=== PATIENT | female | born 1930 | race Caucasian/White ===

== ENCOUNTER 2016-03-27 | Outpatient (CLI) | payer MEDICARE, OTHER | END 2016-03-27 18:38 | disposition critical access hospital (66) | CPT/HCPCS: A0425; A0429 ==

== ENCOUNTER 2016-03-27 19:13 | Inpatient (IN) | payer MEDICARE, OTHER ==
[2016-03-27] MEDS ORDERED: ONDANSETRON 4 MG/2 ML VIAL ONE ×2 (20:02→22:21)
[2016-03-27] MEDS ORDERED: HYDROmorphone 1 MG/ML SYRINGE ONE (20:02)
[2016-03-27] MEDS ORDERED: HYDROmorphone 1 MG/ML SYRINGE IVP STA (20:02)
[2016-03-27] MEDS ORDERED: ONDANSETRON 4 MG/2 ML VIAL IVP STA ×2 (20:02→22:19)
[2016-03-27] MEDS ORDERED: IBUPROFEN 400 MG TABLET PO PRN (21:55)
[2016-03-28] MEDS: SODIUM CHLORIDE FLUSH 0.9% 10 ML SYRINGE IVP SCH ×4 (00:17→21:11)
[2016-03-28] MEDS: SODIUM CHLORIDE 0.9% 1,000 ML IV SCH ×2 (00:17→11:35)
[2016-03-28] MEDS: HYDROmorphone 1 MG/ML SYRINGE IVP PRN ×2 (00:18→06:31)
[2016-03-28] MEDS: ENOXAPARIN 40 MG/0.4 ML SYRINGE SUBQ SCH (08:08)
[2016-03-28] MEDS: POLYETHYLENE GLYCOL 3350 17 GM PACKET PO SCH (08:09)
[2016-03-28] MEDS ORDERED: fentaNYL 250 MCG/5 ML VIAL IVP ONE (08:30)
[2016-03-28] MEDS ORDERED: PROPOFOL 200 MG/20 ML VIAL IVP ONE (08:30)
[2016-03-28] MEDS ORDERED: MIDAZOLAM 2 MG/2 ML VIAL IVP ONE (08:30)
[2016-03-28] MEDS ORDERED: EPINEPHrine 1 MG/ML AMP IVP ONE (08:30)
[2016-03-28] MEDS ORDERED: ONDANSETRON 4 MG/2 ML VIAL IVP ONE (08:30)
[2016-03-28] MEDS ORDERED: SUCCINYLCHOLINE 200 MG/10 ML VIAL IVP ONE (08:30)
[2016-03-28] MEDS ORDERED: ACETAMINOPHEN 1,000 MG/100 ML VIAL IV ONE (08:30)
[2016-03-28] MEDS ORDERED: ROCURONIUM 50 MG/5 ML VIAL IVP ONE (08:30)
[2016-03-28] MEDS ORDERED: ceFAZolin 1 GM VIAL IV ONE (08:30)
[2016-03-28] MEDS ORDERED: DEXAMETHASONE 4 MG/ML VIAL IVP ONE (08:30)
[2016-03-28] MEDS ORDERED: LIDOCAINE-MPF 2% 5 ML VIAL IM ONE (08:30)
[2016-03-28] MEDS ORDERED: METOCLOPRAMIDE 10 MG/2 ML VIAL IVP ONE (08:30)
[2016-03-28] MEDS ORDERED: LACTATED RINGERS 1,000 ML IV ONE ×2 (09:22)
[2016-03-28] MEDS ORDERED: BISACODYL 10 MG SUPP PR PRN (11:05)
[2016-03-28] MEDS: D5NS W/20 MEQ KCL 1,000 ML IV SCH ×2 (11:42→23:54)
[2016-03-28] MEDS: ACETAMINOPHEN 1,000 MG/100 ML 100 ML IV SCH ×3 (12:31→23:54)
[2016-03-28] MEDS: KETOROLAC 15 MG/ML VIAL IVP PRN (12:41)
[2016-03-28] MEDS: SODIUM CHLORIDE FLUSH 0.9% 10 ML SYRINGE IVP PRN (12:41)
[2016-03-28] MEDS: ceFAZolin 1 GM in SODIUM CHLORIDE 0.9% MINIBAG 100 ML IV SCH ×2 (14:18→21:11)
[2016-03-28] MEDS: LATANOPROST 0.005% OPHTH DROPS EACHEYE SCH (21:11)
[2016-03-28] MEDS: PROMETHAZINE 25 MG/1 ML VIAL IM PRN (21:24)
[2016-03-28] MEDS: traMADol 50 MG TABLET PO PRN (23:53)
[2016-03-29] MEDS: ceFAZolin 1 GM in SODIUM CHLORIDE 0.9% MINIBAG 100 ML IV SCH (03:00)
[2016-03-29] MEDS: SODIUM CHLORIDE FLUSH 0.9% 10 ML SYRINGE IVP SCH ×3 (05:21→20:42)
[2016-03-29] MEDS: ACETAMINOPHEN 1,000 MG/100 ML 100 ML IV SCH ×3 (06:29→20:29)
[2016-03-29] MEDS: BISACODYL 5 MG TABLET PO SCH (09:00)
[2016-03-29] MEDS: DOCUSATE SODIUM 250 MG CAPSULE PO SCH (09:00)
[2016-03-29] MEDS: POLYETHYLENE GLYCOL 3350 17 GM PACKET PO SCH (09:00)
[2016-03-29] MEDS ORDERED: SODIUM CHLORIDE 0.9% 100ML 100 ML IV ONE ×2 (10:17→13:55)
[2016-03-29] MEDS: ENOXAPARIN 40 MG/0.4 ML SYRINGE SUBQ SCH (10:54)
[2016-03-29] MEDS: D5NS W/20 MEQ KCL 1,000 ML IV SCH (14:10)
[2016-03-29] MEDS: HYDROcod/ACETAM 5/325 MG TABLET PO PRN (20:30)
[2016-03-29] MEDS: CALCIUM CITRATE 250 MG TABLET PO SCH (20:32)
[2016-03-29] MEDS: LATANOPROST 0.005% OPHTH DROPS EACHEYE SCH (20:41)
[2016-03-30] MEDS: ACETAMINOPHEN 1,000 MG/100 ML 100 ML IV SCH ×4 (00:53→20:11)
[2016-03-30] MEDS: D5NS W/20 MEQ KCL 1,000 ML IV SCH ×3 (01:52→12:13)
[2016-03-30] MEDS: SODIUM CHLORIDE FLUSH 0.9% 10 ML SYRINGE IVP SCH ×2 (07:01→12:21)
[2016-03-30] MEDS: KETOROLAC 15 MG/ML VIAL IVP PRN (08:31)
[2016-03-30] MEDS: HYDROcod/ACETAM 5/325 MG TABLET PO PRN ×2 (08:32→16:52)
[2016-03-30] MEDS: BISACODYL 5 MG TABLET PO SCH (08:33)
[2016-03-30] MEDS: traMADol 50 MG TABLET PO PRN (08:33)
[2016-03-30] MEDS: CALCIUM CITRATE 250 MG TABLET PO SCH ×2 (08:33→20:42)
[2016-03-30] MEDS: POLYETHYLENE GLYCOL 3350 17 GM PACKET PO SCH (08:34)
[2016-03-30] MEDS: ENOXAPARIN 40 MG/0.4 ML SYRINGE SUBQ SCH (08:35)
[2016-03-30] MEDS: DOCUSATE SODIUM 250 MG CAPSULE PO SCH (09:17)
[2016-03-30] MEDS: SUCRALFATE 1 GM/10 ML UDC PO SCH (16:52)
[2016-03-30] MEDS: ONDANSETRON 4 MG/2 ML VIAL IVP PRN (20:37)
[2016-03-30] MEDS: PANTOPRAZOLE 40 MG VIAL IV SCH (20:39)
[2016-03-31] MEDS: ACETAMINOPHEN 1,000 MG/100 ML 100 ML IV SCH ×4 (01:37→18:25)
[2016-03-31] MEDS: SUCRALFATE 1 GM/10 ML UDC PO SCH ×5 (02:19→21:38)
[2016-03-31] MEDS: LATANOPROST 0.005% OPHTH DROPS EACHEYE SCH ×2 (02:20→21:33)
[2016-03-31] MEDS: SODIUM CHLORIDE FLUSH 0.9% 10 ML SYRINGE IVP SCH ×5 (02:21→14:53)
[2016-03-31] MEDS: traMADol 50 MG TABLET PO PRN (02:35)
[2016-03-31] MEDS: ONDANSETRON 4 MG/2 ML VIAL IVP PRN (07:52)
[2016-03-31] MEDS: HYDROmorphone 1 MG/ML SYRINGE IVP PRN (07:58)
[2016-03-31] MEDS: BISACODYL 5 MG TABLET PO SCH (09:13)
[2016-03-31] MEDS: POLYETHYLENE GLYCOL 3350 17 GM PACKET PO SCH (09:14)
[2016-03-31] MEDS: CALCIUM CITRATE 250 MG TABLET PO SCH ×2 (09:14→21:30)
[2016-03-31] MEDS: DOCUSATE SODIUM 250 MG CAPSULE PO SCH (09:14)
[2016-03-31] MEDS: PANTOPRAZOLE 40 MG VIAL IV SCH ×2 (09:31→21:30)
[2016-03-31] MEDS: SODIUM CHLORIDE FLUSH 0.9% 10 ML SYRINGE IVP PRN ×2 (09:32→21:30)
[2016-03-31] MEDS: PROMETHAZINE 25 MG/1 ML VIAL IM PRN (11:03)
[2016-03-31] MEDS ORDERED: FUROSEMIDE 40 MG/4 ML VIAL IVP ONE (14:00)
[2016-03-31] MEDS ORDERED: IOPAMIDOL-300 100 ML VIAL IVP ONE (14:03)
[2016-03-31] MEDS: HEPARIN 25,000 UNITS/500 ML 500 ML IV SCH (14:45)
[2016-03-31] MEDS: HYDROcod/ACETAM 5/325 MG TABLET PO PRN (18:26)
[2016-04-01] MEDS: ACETAMINOPHEN 1,000 MG/100 ML 100 ML IV SCH ×4 (00:16→17:42)
[2016-04-01] MEDS: SUCRALFATE 1 GM/10 ML UDC PO SCH ×4 (06:44→21:41)
[2016-04-01] MEDS: DOCUSATE SODIUM 250 MG CAPSULE PO SCH (08:28)
[2016-04-01] MEDS: BISACODYL 5 MG TABLET PO SCH (08:28)
[2016-04-01] MEDS: PANTOPRAZOLE 40 MG VIAL IV SCH (08:30)
[2016-04-01] MEDS: CALCIUM CITRATE 250 MG TABLET PO SCH ×2 (08:30→21:41)
[2016-04-01] MEDS: SODIUM CHLORIDE FLUSH 0.9% 10 ML SYRINGE IVP PRN ×3 (08:30→15:20)
[2016-04-01] MEDS: POLYETHYLENE GLYCOL 3350 17 GM PACKET PO SCH (08:30)
[2016-04-01] MEDS: traMADol 50 MG TABLET PO PRN (15:07)
[2016-04-01] MEDS: HEPARIN 25,000 UNITS/500 ML 500 ML IV SCH (15:18)
[2016-04-01] MEDS: ONDANSETRON 4 MG/2 ML VIAL IVP PRN (15:19)
[2016-04-01] MEDS: SODIUM CHLORIDE FLUSH 0.9% 10 ML SYRINGE IVP SCH ×2 (15:32→21:42)
[2016-04-01] MEDS: HYDROcod/ACETAM 5/325 MG TABLET PO PRN (17:06)
[2016-04-01] MEDS: PROMETHAZINE 25 MG/1 ML VIAL IM PRN (17:06)
[2016-04-01] MEDS: LATANOPROST 0.005% OPHTH DROPS EACHEYE SCH (21:41)
[2016-04-02] MEDS: ACETAMINOPHEN 1,000 MG/100 ML 100 ML IV SCH ×4 (01:31→18:28)
[2016-04-02] MEDS: PANTOPRAZOLE 40 MG TABLET PO SCH (06:35)
[2016-04-02] MEDS: SUCRALFATE 1 GM/10 ML UDC PO SCH ×4 (06:35→21:03)
[2016-04-02] MEDS: SODIUM CHLORIDE FLUSH 0.9% 10 ML SYRINGE IVP SCH ×3 (06:35→20:12)
[2016-04-02] MEDS: HEPARIN 25,000 UNITS/500 ML 500 ML IV SCH (06:46)
[2016-04-02] MEDS: POLYETHYLENE GLYCOL 3350 17 GM PACKET PO SCH (08:41)
[2016-04-02] MEDS: BISACODYL 5 MG TABLET PO SCH (08:42)
[2016-04-02] MEDS: CALCIUM CITRATE 250 MG TABLET PO SCH ×2 (08:42→20:09)
[2016-04-02] MEDS: DOCUSATE SODIUM 250 MG CAPSULE PO SCH (08:43)
[2016-04-02] MEDS ORDERED: HEPARIN 25,000 UNITS/500 ML 500 ML IV SCH (09:00)
[2016-04-02] MEDS: APIXABAN 2.5 MG TABLET PO SCH (13:09)
[2016-04-02] MEDS: SODIUM CHLORIDE FLUSH 0.9% 10 ML SYRINGE IVP PRN (18:33)
[2016-04-02] MEDS: LATANOPROST 0.005% OPHTH DROPS EACHEYE SCH (20:12)
[2016-04-02] MEDS ORDERED: MAGNESIUM HYDROXIDE 2,400 MG/30 ML UDC PO ONE (21:00)
[2016-04-03] MEDS: ACETAMINOPHEN 1,000 MG/100 ML 100 ML IV SCH ×4 (00:56→18:04)
[2016-04-03] MEDS: APIXABAN 2.5 MG TABLET PO SCH ×2 (00:57→15:08)
[2016-04-03] MEDS: SUCRALFATE 1 GM/10 ML UDC PO SCH ×4 (06:43→21:18)
[2016-04-03] MEDS: PANTOPRAZOLE 40 MG TABLET PO SCH (06:43)
[2016-04-03] MEDS: SODIUM CHLORIDE FLUSH 0.9% 10 ML SYRINGE IVP SCH ×3 (06:43→20:10)
[2016-04-03] MEDS ORDERED: LACTULOSE 10 GM /15 ML UDC PO ONE (06:56)
[2016-04-03] MEDS: traMADol 50 MG TABLET PO PRN (09:59)
[2016-04-03] MEDS: POLYETHYLENE GLYCOL 3350 17 GM PACKET PO SCH (10:02)
[2016-04-03] MEDS: BISACODYL 5 MG TABLET PO SCH (10:02)
[2016-04-03] MEDS: DOCUSATE SODIUM 250 MG CAPSULE PO SCH (10:04)
[2016-04-03] MEDS: CALCIUM CITRATE 250 MG TABLET PO SCH ×2 (10:05→20:10)
[2016-04-03] MEDS: LATANOPROST 0.005% OPHTH DROPS EACHEYE SCH (20:10)
[2016-04-03] MEDS: HYDROcod/ACETAM 5/325 MG TABLET PO PRN (21:21)
[2016-04-04] MEDS: ACETAMINOPHEN 1,000 MG/100 ML 100 ML IV SCH ×3 (00:13→12:31)
[2016-04-04] MEDS: APIXABAN 2.5 MG TABLET PO SCH ×2 (00:34→12:39)
[2016-04-04] MEDS: PANTOPRAZOLE 40 MG TABLET PO SCH (07:01)
[2016-04-04] MEDS: SUCRALFATE 1 GM/10 ML UDC PO SCH ×2 (07:01→11:51)
[2016-04-04] MEDS: SODIUM CHLORIDE FLUSH 0.9% 10 ML SYRINGE IVP SCH (07:01)
[2016-04-04] MEDS: CALCIUM CITRATE 250 MG TABLET PO SCH (08:17)
[2016-04-04] MEDS: POLYETHYLENE GLYCOL 3350 17 GM PACKET PO SCH (08:17)
[2016-04-04] MEDS: DOCUSATE SODIUM 250 MG CAPSULE PO SCH (08:17)
[2016-04-04] MEDS: BISACODYL 5 MG TABLET PO SCH (08:18)
[2016-04-09] MEDS ORDERED: APIXABAN 2.5 MG TABLET PO SCH (13:00)
== END 2016-04-04 14:50 | DRG 480 ==
PROC: 0QS636Z Reposition Right Upper Femur with Intramedullary Internal Fixation Device, Percutaneous Approach (ICD-10-PCS; principal; 2016-03-28 08:00)
PROC: 30233N1 Transfusion of Nonautologous Red Blood Cells into Peripheral Vein, Percutaneous Approach (ICD-10-PCS; 2016-03-29)
DX: S72.21XA Displaced subtrochanteric fracture of right femur, initial encounter for closed fracture (principal); W01.0XXA Fall on same level from slipping, tripping and stumbling without subsequent striking against object, initial encounter; I26.99 Other pulmonary embolism without acute cor pulmonale; R01.1 Cardiac murmur, unspecified; E87.1 Hypo-osmolality and hyponatremia; D62 Acute posthemorrhagic anemia; I47.1 Supraventricular tachycardia; L76.32 Postprocedural hematoma of skin and subcutaneous tissue following other procedure; S72.141A Displaced intertrochanteric fracture of right femur, initial encounter for closed fracture; S72.041A Displaced fracture of base of neck of right femur, initial encounter for closed fracture; I35.0 Nonrheumatic aortic (valve) stenosis; E78.00 Pure hypercholesterolemia, unspecified; H40.9 Unspecified glaucoma; Y83.8 Other surgical procedures as the cause of abnormal reaction of the patient, or of later complication, without mention of misadventure at the time of the procedure; Y92.239 Unspecified place in hospital as the place of occurrence of the external cause; W10.9XXA Fall (on) (from) unspecified stairs and steps, initial encounter; Y92.89 Other specified places as the place of occurrence of the external cause; Z66 Do not resuscitate

== ENCOUNTER 2017-05-14 09:42 | Outpatient (CLI) | payer MEDICARE, OTHER ==
--- NOTE | 2017-05-14 11:43 | XRAY Report ---
TWO VIEW BILATERAL ANKLES: 05/14/2017 CLINICAL INDICATION: Pain. FINDINGS: Frontal and lateral views of the bilateral ankles obtained standing demonstrate moderate to severe bilateral osteoarthritis, with talar rotation within the mortise and complete collapse of the lateral tibiotalar joint space bilaterally. There is no evidence of acute fracture. No foreign body is seen in the soft tissues. 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 TD: 05/14/2017 11:43
--- NOTE | 2017-05-14 11:46 | XRAY Report ---
TWO VIEW BILATERAL FEET: 05/14/2017 CLINICAL INDICATION: Pain. FINDINGS: Frontal and lateral weightbearing views of the bilateral feet demonstrate left worse than right pes planus and osteoarthritis. No acute fracture is appreciated. No foreign body is seen in the soft tissues. IMPRESSION: OSTEOARTHRITIS, WITH LEFT WORSE THAN RIGHT PES PLANUS. TD: 05/14/2017 11:45
== END 2017-05-14 09:43 | disposition home or self-care (01) ==
LOC: DI 09:42
PROVIDERS: ATTEND Internal Medicine
DX: M19.072 Primary osteoarthritis, left ankle and foot (principal); M19.071 Primary osteoarthritis, right ankle and foot; M21.42 Flat foot [pes planus] (acquired), left foot; M21.41 Flat foot [pes planus] (acquired), right foot

== ENCOUNTER 2019-04-23 16:25 | Outpatient (CLI) | payer MEDICARE, OTHER | END 2019-04-23 16:26 | disposition critical access hospital (66) | LOC: EMS 16:25 | PROVIDERS: ATTEND Surgery | DX: R06.02 Shortness of breath (principal) | CPT/HCPCS: A0425; A0429 ==

== ENCOUNTER 2019-04-23 16:50 | Inpatient (IN) | payer MEDICARE, OTHER ==
[2019-04-23] MEDS ORDERED: NITROGLYCERIN 2% PASTE TOP STA (16:59)
--- NOTE | 2019-04-23 17:03 | ED Physician Documentation ---
PD HPI DYSPNEA - Stated complaint Stated Complaint: SOA - History obtained from History obtained from: Patient, EMS - History of Present Illness Timing - onset: Yesterday (This is a bere 88-year-old woman who presents by ambulance for shortness of breath. It was mild yesterday and more significant today. She has a mild cough with it and does note pedal edema, but is not sure if it is any more than her usual pedal edema. She has some stomach upset but thinks that is because she is been taking a lot of NSAIDs for pain. She denies a lot of stomach pain but she does feel little nauseous. Of note she has a history of PE although she does not recall this. It was after hip fracture in 2017 and she is not currently anticoagulated. She also at that time was identified to have mild to moderate aortic stenosis. Currently she says her only medications have to do with her glaucoma, eyedrops. She has no history of heart or lung problems per her save what is written above. No recent travel. No fevers.) Review of Systems Ten Systems: 10 systems reviewed and negative Constitutional: denies: Fever, Chills Cardiac: reports: Pedal edema. denies: Chest pain / pressure, Palpitations, Calf pain Respiratory: reports: Dyspnea, Cough. 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 - Present Medications Home Medications: Ambulatory Orders Medication Instructions Recorded Confirmed Latanoprost 0.005% Ophth Drops 1 drops EACHEYE QPM 03/28/16 04/23/19 [Xalatan Ophth Drops] Walker [Ultra-Light Rollator] 1 each MC DAILY #1 each 04/04/16 04/23/19 - Allergies Allergies/Adverse Reactions: Allergies Allergy/AdvReac Type Severity Reaction Status Date / Time No Known Drug Allergies Allergy Verified 04/23/19 19:17 - Social History Does the pt smoke?: No Smoking Status: Never smoker Does the pt drink ETOH?: No Does the pt have substance abuse?: No - Immunizations Immunizations are current?: Yes PD ED PE NORMAL - Vitals Vital signs reviewed: Yes - General General: Alert and oriented X 3, No acute distress - HEENT HEENT: Pharynx benign - Neck Neck: Supple, no meningeal sign, No JVD - Cardiac Cardiac: Other (Frequent extrasystoles with subtle systolic murmur) - Respiratory Respiratory: Other (Mild rales at both bases) - Abdomen Abdomen: Soft, Non tender - Back Back: No CVA TTP, No spinal TTP - Derm Derm: Normal color, Warm and dry - Extremities Extremities: Other (Mild pitting pedal edema, nontender, symmetric) - Neuro Neuro: Alert and oriented X 3, Normal speech Results - Vitals Vitals: Vital Signs - 24 hr 04/23/19 04/23/19 04/23/19 17:02 17:21 18:22 Temperature 36.9 C Heart Rate 90 78 Respiratory 28 H 24 Rate Blood Pressure 131/97 H 173/85 H 149/91 H O2 Saturation 98 94 04/23/19 19:14 Temperature 36.6 C Heart Rate 87 Respiratory 20 Rate Blood Pressure 185/93 H O2 Saturation 99 Oxygen O2 Source Nasal cannula Oxygen Flow Rate 2 - EKG (time done) 1706 Rate: Rate (enter#) (101) Rhythm: Sinus tachycardia (with freq pvcs), LAE [place]: RAD, LAD Intervals: Normal MS QRS: Normal Ischemia: Q waves (inferior, small). No: ST elevation c/w ischemia Computer interpretation: Agree with computer - Labs Labs: Laboratory Tests 04/23/19 04/23/19 04/23/19 16:59 17:15 17:15 WBC 5.9 RBC 4.28 Hgb 13.1 Hct 40.1 MCV 93.7 MCH 30.6 MCHC 32.7 RDW 13.4 Plt Count 210 MPV 10.2 Neut # (Auto) 3.2 Lymph # (Auto) 1.6 [place] # (Auto) 0.8 Eos # (Auto) 0.2 Baso # (Auto) 0.0 Absolute Nucleated RBC 0.00 Nucleated RBC % 0.0 D-Dimer Sodium 127 L Potassium 3.7 Chloride 92 L Carbon Dioxide 25 Anion Gap 10.0 BUN 14 Creatinine 0.6 Estimated GFR (MDRD) 94 Glucose 111 H Calcium 9.4 Total Bilirubin 0.7 AST 24 ALT 22 Alkaline Phosphatase 53 Troponin I High Sens 19.6 H* B-Natriuretic Peptide Total Protein 7.2 Albumin 3.8 Globulin 3.4 Albumin/Globulin Ratio 1.1 Lipase 26 04/23/19 04/23/19 17:15 17:15 WBC RBC Hgb Hct MCV MCH MCHC RDW Plt Count MPV Neut # (Auto) Lymph # (Auto) [place] # (Auto) Eos # (Auto) Baso # (Auto) Absolute Nucleated RBC Nucleated RBC % D-Dimer 311.5 H Sodium Potassium Chloride Carbon Dioxide Anion Gap BUN Creatinine Estimated GFR (MDRD) Glucose Calcium Total Bilirubin AST ALT Alkaline Phosphatase Troponin I High Sens B-Natriuretic Peptide 559 H Total Protein Albumin Globulin Albumin/Globulin Ratio Lipase PD MEDICAL DECISION MAKING - ED course ED course: This is an 88-year-old woman who presents with fairly acute dyspnea, mild yesterday more significant today, exam and chest x-ray most consistent with new onset but fairly mild CHF. She is not in extremis. Review of the chart shows that she has a history of a PE and a d-dimer was done followed by a CT since it was positive but there is no PE. She does have an elevated BNP. In review of the chart it also shows that 3 years ago she had mild to moderate aortic stenosis, one would have to wonder if her aortic stenosis is more significant now. She was given Nitropaste and Lasix as well as lisinopril here in the department and I spoke with Dr. Kaba for observation for medical management and expedited echo tomorrow at 7:34 PM. After ambulating the bathroom though she got back in bed and was fairly hypoxic down at about 80 to 83% and placed on oxygen. Dr. Kaba was updated and would like to change her to inpatient. Departure - Departure Disposition: [facility] DC/Xfer Clinical Impression: Congestive heart failure Qualifiers: Heart failure type: unspecified Heart failure chronicity: acute Qualified Code(s): I50.9 - Heart failure, unspecified Dyspnea Qualifiers: Dyspnea type: shortness of breath Qualified Code(s): R06.02 - Shortness of breath Condition: Stable
[2019-04-23 17:18] LABS: BASOPHILS % (AUTO) 0.5 %; EOSINOPHILS # (AUTO) 0.2 10^3/uL (0.0-0.7); EOSINOPHILS % (AUTO) 2.9 %; HGB - HEMOGLOBIN 13.1 g/dL (12.0-16.0); LYMPHOCYTES # (AUTO) 1.6 10^3/uL (1.5-3.5); LYMPHOCYTES % (AUTO) 26.9 %; MEAN CORPUSCULAR HEMOGLOBIN 30.6 pg (27.0-31.0); MEAN CORPUSCULAR HGB CONC 32.7 g/dL (32.0-36.0); MEAN CORPUSCULAR VOLUME 93.7 fL (81.0-99.0); MEAN PLATELET VOLUME 10.2 fL (7.9-10.8); MONOCYTES # (AUTO) 0.8 10^3/uL (0.0-1.0); MONOCYTES % (AUTO) 14.1 %; NEUTROPHILS # (AUTO) 3.2 10^3/uL (1.5-6.6); NEUTROPHILS % (AUTO) 55.3 %; PLT - PLATELET COUNT 210 10^3/uL (130-450); RED BLOOD COUNT 4.28 10^6/uL (4.20-5.40); RED CELL DISTRIBUTION WIDTH 13.4 % (12.0-15.0); WHITE BLOOD COUNT 5.9 x10^3/uL (4.8-10.8)
[2019-04-23 17:29] LABS: ALBUMIN 3.8 g/dL (3.2-5.5); ALBUMIN/GLOBULIN RATIO 1.1 (1.0-2.2); BILIRUBIN,TOTAL 0.7 mg/dL (0.2-1.0); CALCIUM 9.4 mg/dL (8.5-10.3); CREATININE 0.6 mg/dL (0.4-1.0); TOTAL PROTEIN 7.2 g/dL (6.7-8.2)
--- NOTE | 2019-04-23 17:43 | XRAY Report ---
Reason: dyspnea Procedure Date: 04/23/2019 Accession Number: [id number] / [id number] Procedure: XR - Chest 2 View X-Ray CPT Code: 61090 Final Report FULL RESULT: EXAM: CHEST RADIOGRAPHY EXAM DATE: 04/23/2019 05:33 PM. CLINICAL HISTORY: Dyspnea. COMPARISON: CHEST 2 VIEW PA/LAT 03/31/2016 9:45 AM. TECHNIQUE: 2 views. FINDINGS: Lungs/Pleura: There is mild continued pulmonary edema. No focal opacities evident. No pleural effusion. No pneumothorax. Normal volumes. Mediastinum: Heart and mediastinal contours are unremarkable. Other: None. IMPRESSION: Mild continued pulmonary edema. No focal opacity. RADIA
[2019-04-23] MEDS ORDERED: IOVERSOL 320 100 ML VIAL IVP ONE ×2 (18:01→18:49)
[2019-04-23] MEDS ORDERED: ONDANSETRON 4 MG/2 ML VIAL IVP STA (18:39)
--- NOTE | 2019-04-23 19:21 | CT Report ---
Reason: dyspnea, H/O PE, PE protocol Procedure Date: 04/23/2019 Accession Number: [id number] / [id number] Procedure: CT - ANGIO CHEST W/WO CPT Code: Final Report FULL RESULT: EXAM: CT ANGIOGRAM CHEST EXAM DATE: 04/23/2019 06:48 PM. CLINICAL HISTORY: Dyspnea, history of pulmonary embolism. Pulmonary embolism protocol. COMPARISON: CHEST ANGIO 03/31/2016 1:51 PM. TECHNIQUE: Routine helical imaging was performed through the chest in the pulmonary arterial phase. IV Contrast: Optiray 320. Reconstructions: Coronal 3-D MIP reconstructions. Sagittal and coronal. In accordance with CT protocol optimization, one or more of the following dose reduction techniques were utilized for this exam: automated exposure control, adjustment of mA and/or KV based on patient size, or use of iterative reconstructive technique. FINDINGS: Pulmonary Arteries: Diagnostic quality: Adequate through the segmental arteries. No evidence for acute or chronic pulmonary emboli. RV/LV is within normal limits. There is no interventricular septal bowing. There is no reflux of contrast material in the IVC. Lungs/Pleura: There is pulmonary vascular congestion and septal thickening. No confluent lung consolidation. Atelectatic opacity seen in the right lower lobe. No pleural effusion or pneumothorax. Mediastinum: Normal. No cardiac enlargement or adenopathy. Thoracic Aorta: Borderline aneurysmal dilatation of the ascending thoracic aorta to 4 cm. Upper Abdomen: Unremarkable. Other: None. IMPRESSION: 1. No pulmonary embolism. 2. 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 RADIA
[2019-04-23] MEDS ORDERED: FUROSEMIDE 40 MG/4 ML VIAL IVP STA (19:24)
[2019-04-23] MEDS ORDERED: lisinopriL 5 MG TABLET PO STA (19:32)
[2019-04-23] MEDS ORDERED: ONDANSETRON 4 MG/2 ML VIAL IVP PRN (19:35)
[2019-04-23] MEDS ORDERED: ACETAMINOPHEN 325 MG TABLET PO PRN (19:35)
--- NOTE | 2019-04-23 19:56 | HISTORY & PHYSICAL EXAMINATION ---
Chief Complaint - Chief Complaint Chief Complaint: Dyspnea History of Present Illness - Admitted From Admitted From:: Home - History Obtained From Records Reviewed: Yes History obtained from: Patient, ER Physician, EMR - History of Present Illness HPI Comment/Other: This is a 88-year-old female with a past medical history significant for a provoked pulmonary embolism after right hip fracture who is no longer on anticoagulation, chronic hearing loss who presents today complaining of worsening shortness of breath over the past 2 days. She states her symptoms began yesterday at rest and with exertion. Today she noticed she was really short of breath at rest. She has an associated cough with occasional sputum production. She reports no fevers but does complain of occasional chills. She states she has chronic swelling in her bilateral ankles and she does not feel it is much worse. She denies orthopnea and states she sleeps on her left side usually and this has not recently changed. She has also had nausea and vomiting over the past few days. No bloody emesis. She does take daily NSAID for the past few years for chronic right ankle pain. She reports epigastric abdominal pain. She has no chest pain, dysuria, urgency, frequency. She reports no prior history of heart failure or coronary artery disease. She also denies a prior history of hypertension and is not on any antihypertensives at home. Her only medication is latanoprost to help prevent glaucoma. In the emergency department, she is found to be afebrile with temperature of 36.9 C. Her heart rate was 90 and in sinus rhythm. Her blood pressure was initially 131/97 but this increased to 185/93. She was given lisinopril 10 mg and Nitropaste. Her blood pressure improved to 144/103 after these interventions. She was not tachypneic and initially she was saturating well on room air. She did walk in the emergency department on room air and after returning to her bed, she is found be hypoxic with oxygen saturations in the low 80s. Her labs were significant for an elevated d-dimer of 311.5. Her sodium was low at 127. Her troponin was mildly elevated at 19.6 and her BNP was elevated at 559. Her chest x-ray was concerning for pulmonary edema. Given the elevated d-dimer, a CT angiogram of the chest was obtained which was negative for pulmonary embolism but did show pulmonary edema. She was given Lasix 40 mg IV in the emergency department. Given her dyspnea and hypoxia, medicine was consulted for admission. Of note, I did discuss goals of care with the patient and she would like to be a DNR. History - Past Medical History Cardiovascular: reports: None, Pulmonary embolism (After hip fracture.) Respiratory: reports: None Endocrine/Autoimmune: reports: None GI: reports: None : reports: None HEENT: reports: Glaucoma, Chronic hearing loss Psych: reports: None Musculoskeletal: reports: None Derm: reports: None MRSA Hx?: No - Past Surgical History Ortho: reports: Other (Cephalomedullar nailing of the right hip.) - Family & Social History Family History Comment/Other: She believes that her father may have from a myocardial infarction. Denies any other family history to her knowledge. Living arrangement: At home Living Situation: Alone Social History Notes: She lives alone at home. Has lived on [facility] for over 15 years after previously living in [place], [place]. She smoked for a little bit in her early years but quit. Denies alcohol use. - Substance History Use: Uses substance without health or social issues: NONE Meds/Allgy - Home Medications Home Medications: Ambulatory Orders Medication Instructions Recorded Confirmed Latanoprost 0.005% Ophth Drops 1 drops EACHEYE QPM 03/28/16 04/23/19 [Xalatan Ophth Drops] Walker [Ultra-Light Rollator] 1 each MC DAILY #1 each 04/04/16 04/23/19 - Allergies Allergies/Adverse Reactions: Allergies Allergy/AdvReac Type Severity Reaction Status Date / Time No Known Drug Allergies Allergy Verified 04/23/19 19:17 Review of Systems - Constitutional Constitutional: reports: Chills. denies: Fatigue, Fever, Malaise, Weakness - Cardiovascular Cariovascular: reports: Edema, Exertional dyspnea, Decr. exercise tolerance. denies: Chest pain - Respiratory Respiratory: reports: Cough, SOB at rest, SOB with exertion. denies: Orthopnea - Gastrointestinal Gastrointestinal: reports: Abdominal pain, Nausea, Vomiting. denies: Constipation, Diarrhea, Rory blood emesis, Poor appetite - Genitourinary Genitourinary: denies: Dysuria, Frequency, Urgency, Hematuria - Musculoskeletal Musculoskeletal: denies: Muscle pain, Limited range of motion, Muscle weakness - Integumentary Integumentary: denies: Rash - Neurological Neurological: denies: General weakness, Focal weakness, Numbness - All Other Systems All Other Systems: reports: Reviewed and negative Prior Level of Functionality: She lives alone and is independent with her ADL's. Ambulates with a walker at baseline. Exam - Vital Signs Reviewed Vital Signs: Yes Vital Signs: Vital Signs x48h Temp Pulse Resp BP Pulse Ox 04/23/19 19:52 94 18 97 04/23/19 19:14 36.6 C 87 20 185/93 H 99 04/23/19 18:22 78 24 149/91 H 94 04/23/19 17:21 173/85 H 04/23/19 17:02 36.9 C 90 28 H 131/97 H 98 - Physical Exam General Appearance: positive: No acute distress, Alert Eyes Bilateral: positive: Normal inspection, Conjunctivae nml ENT: positive: ENT inspection nml Neck: positive: Nml inspection Respiratory: positive: No respiratory distress, Rales. negative: Breath sounds nml, Wheezes, Rhonchi Cardiovascular: positive: Regular rate & rhythm, Extrasystoles, Systolic murmur. negative: Irregularly irregular, Tachycardia, Bradycardia Abdomen: positive: Non-tender, No distention. negative: Tenderness, Guarding, Rebound Skin: positive: No rash, Warm, Dry Extremities: positive: Full ROM, Pedal edema (Trace pitting edema in bilateral lower extremities.). negative: Calf tenderness Neurologic/Psychiatric: positive: Oriented x3, Motor nml. negative: Disoriented to person, Disoriented to place, Disoriented to time, Slurred/abnml speech Conclusion/Plan - Problem List (1) Suspected congestive heart failure Conclusion/Plan: She presents with worsening dyspnea at rest and exertion, elevated BNP, pulm onary edema on imaging, and hypoxia. Her prior echocardiogram showed a preserved ejection fraction with grade 1 diastolic dysfunction. Her last BNP was within normal limits and now it is 559. This may be acute diastolic heart failure exacerbation but will need to rule out a new cardiomyopathy. Her troponin is just mildly elevated and she does not have chest pain or EKG changes suggestive of ischemia. Suspect this is demand ishchemia due to the heart failure. Will diurese her with Lasix IV 40mg daily. Low sodium diet and fluid restriction of 2L. Check an echocardiogram. Repeat BNP prior to discharge. Trend troponin. Monitor on telemetry. (2) Hypoxia Conclusion/Plan: She desaturated into the low 80's with exertion on room air. She is not hypoxic at rest but remains on 2L of oxygen via nasal cannula. This is likely secondary to her pulmonary edema due to heart failure. CT angiogram of the chest was negative for pulmonary embolism but did show pulmonary edema. Will diurese her with IV Lasix. Supplemental oxygen as needed for a goal saturation >92%. (3) Hyponatremia Conclusion/Plan: Suspect this hypervolemic hyponatremia secondary to heart failure. Her sodium is decreased at 127. This should improve with diuresis and free water restriction. We will continue to monitor her sodium. (4) Gastritis Conclusion/Plan: She complains of abdominal pain along with chronic use of ibuprofen. Her abdominal exam is benign. Suspect this is gastritis. Will place her on PPI and limit her NSAID use. If her pain becomes severe or her abdominal exam changes, will consider CT of the abdomen and pelvis. Qualifiers: Gastritis type: unspecified gastritis Chronicity: chronic Gastritis bleeding: without bleeding Qualified Code(s): K29.50 - Unspecified chronic gastritis without bleeding (5) Hypertension Conclusion/Plan: She denies a history of hypertension and is not on antihypertensives at home but her blood pressure was elevated in the 180's systolic here in the emergency department. She received nitropaste and Lisinopril with improvement to the 140's systolic. Will keep her on Lisinopril 10mg daily. Will use nitropaste as needed. (6) Mild aortic stenosis Conclusion/Plan: This was evident on her prior echocardiogram. Will reevaluate for worsening stenosis with another echocardiogram. (7) History of pulmonary embolism Conclusion/Plan: This was a provoked pulmonary embolism and a right hip fracture. Her d-dimer was elevated today but CT angiogram of the chest was negative for PE. Heparin SC and SCD's for DVT prophylaxis. - Lab Results Lab results reviewed: Yes Fish Bones: 04/23/19 16:59 04/23/19 17:15 - Diagnostic Imaging Results Diagnostic Imaging Results: positive: Final report reviewed - EKG Results EKG Interpreted Independently: Yes EKG Comparison: Changed from prior EKG EKG Findings: Her EKG shows sinus tachycardia with PVC's. No obvious signs of ST depressions or elevations. Compared to her old EKG, the PVCs are new as well as the tachycardia. Core Measures - Anticipated LOS I expect patient to be DC'd or transferred within 96 hours.: Yes - Issues Hospital Issues and Management Plan: 88 year old female who presents with dyspnea at rest and on exertion found to be hypoxic with an elevated BNP and pulmonary edema on imaging. Concern is for new heart failure. Will admit for IV diuresis and obtain an echocardiogram. - DVT/VTE - Prophylaxis VTE/DVT Device ordered at admit?: Yes VTE/DVT Prophylaxis med ordered at admit?: Yes
[2019-04-23] MEDS ORDERED: POTASSIUM CHLORIDE 20 MEQ TABLET PO ONE (21:01)
[2019-04-23] MEDS ORDERED: diphenhydrAMINE 25 MG CAPSULE PO PRN (21:27)
[2019-04-23] MEDS: LATANOPROST 0.005% OPHTH DROPS EACHEYE SCH (22:30)
[2019-04-23] MEDS: HEPARIN 5,000 UNIT/ML VIAL SUBQ SCH (22:31)
[2019-04-24] MEDS: SODIUM CHLORIDE FLUSH 0.9% 10 ML SYRINGE IVP SCH ×3 (00:16→20:15)
[2019-04-24 04:57] LABS: BASOPHILS % (AUTO) 0.7 %; EOSINOPHILS # (AUTO) 0.4 10^3/uL (0.0-0.7); EOSINOPHILS % (AUTO) 7.2 %; HGB - HEMOGLOBIN 13.2 g/dL (12.0-16.0); LYMPHOCYTES # (AUTO) 1.1 10^3/uL (1.5-3.5); LYMPHOCYTES % (AUTO) 18.5 %; MEAN CORPUSCULAR HGB CONC 33.2 g/dL (32.0-36.0); MEAN CORPUSCULAR VOLUME 96.4 fL (81.0-99.0); MEAN PLATELET VOLUME 10.5 fL (7.9-10.8); MONOCYTES # (AUTO) 0.9 10^3/uL (0.0-1.0); MONOCYTES % (AUTO) 15.5 %; NEUTROPHILS # (AUTO) 3.5 10^3/uL (1.5-6.6); NEUTROPHILS % (AUTO) 57.8 %; PLT - PLATELET COUNT 211 10^3/uL (130-450); RED BLOOD COUNT 4.13 10^6/uL (4.20-5.40); RED CELL DISTRIBUTION WIDTH 13.3 % (12.0-15.0)
[2019-04-24 05:07] LABS: CALCIUM 8.8 mg/dL (8.5-10.3); CREATININE 0.8 mg/dL (0.4-1.0); MAGNESIUM 2.1 mg/dL (1.7-2.8); PHOSPHORUS 4.8 mg/dL (2.5-4.6)
[2019-04-24] MEDS: PANTOPRAZOLE 40 MG TABLET PO SCH (06:45)
[2019-04-24] MEDS: HEPARIN 5,000 UNIT/ML VIAL SUBQ SCH ×2 (08:23→20:15)
[2019-04-24] MEDS ORDERED: FUROSEMIDE 40 MG/4 ML VIAL IVP SCH (09:00)
[2019-04-24] MEDS ORDERED: lisinopriL 5 MG TABLET PO SCH (09:00)
--- NOTE | 2019-04-24 10:59 | PROVIDER PROGRESS NOTE ---
Assessment/Plan - Problem List (1) Hypotension due to drugs Assessment/Plan: After the systolic BP of 180 in ER, she got 1" NTP, Lisinopril 10 mg and Lasix 40 mg iv. This dropped her BP to 90's at 0500. By 10 am BP is still hypotensive in the 80's. By stopping the Ibuprofen use, BP will also decrease. Will stop Lisinopril. NTPaste was already stopped. Will change to po Lasix and next dose will be tomorrow. If BP >100 systolic tomorrow, will add Toprol XL to treat the diastolic dysfunction (see below). Continue telemetry. (2) Ventricular bigeminy Assessment/Plan: This arrhthmia is adding to the worsening mitral regurg (was seen every other beat on the Echo). Will follow Mg, electrolytes. (3) Hyponatremia Assessment/Plan: Hypervolemic hyponatremia is suspected, due to free water and volume excess. It is improving from 127 yesterday to 132 today, with iv diuretic plus total fluid restriction per day. Continue this plan. Follow I's and O's. Follow BMP daily. (4) Acute diastolic heart failure due to valvular disease Assessment/Plan: The Echo was just done today and showed mild , moderate MR, and presrved LVEF with diastolic dysfunction Grade 2. The troponins did not rise and fall, ruling out an acute NH. Continue diuretic, will change iv to po Lasix. If BP will tolerate, will start a low dose of B-mirna, probably tomorrow. Continue total daily fluid restriction order. Follow I's and O's and daily weights. When OOB and walking, will evaluate if she needs home O2 before [facility], since she was desaturating during walking in the ER, into the 80's. (5) Aortic stenosis Assessment/Plan: The severity has not progressed much since 2017. It is likely adding to the diastolic dysfunction. (6) Arthritis pain Assessment/Plan: She has seen at least 1 s[ecialist, possibly 2, and was told her bilateral ankle pain is from arthritis. Both Providers told her to use Celebrex, which she coul d only tolerate for a week in the past, both times, since it caused stomach pain and upset. Thus she uses daily Ibuprofen and Excedrin. The high NSAIDs use is a component of what caused the fluid retention, and the HTN too. Will stop NSAIDs. Start Tylenol for pain. Use Tylenol pm for nighttime pain with trouble falling asleep (per the son, who was at bedside when I examined and spoke to her). Will order PT, to start tomorrow, not today due to persistent marked hypotension. (7) Glaucoma Assessment/Plan: Continue her home eye drops. (8) [place] (hard of hearing) Assessment/Plan: The son, Young, brought in her hearing aide. - Current Meds Current Meds: Current Medications Generic Name Dose Route Start Last Admin Trade Name Freq PRN Reason Stop Dose Admin Acetaminophen 650 mg 04/23/19 19:35 04/24/19 06:55 Tylenol PO 650 mg Q4HR PRN Administration Pain 1 to 4 Diphenhydramine HCl 25 mg 04/23/19 21:27 04/23/19 22:32 Benadryl PO 25 mg QPM PRN Administration Insomnia Heparin Sodium (Porcine) 5,000 unit 04/23/19 21:00 04/24/19 08:23 SUBQ 5,000 unit BID LAWRENCE Administration Latanoprost 1 drops 04/23/19 21:00 04/23/19 22:30 Xalatan Ophth Drops EACHEYE 1 drops QPM LAWRENCE Administration Pantoprazole Sodium 40 mg 04/24/19 07:00 04/24/19 06:45 Protonix PO 40 mg QDAC LAWRENCE Administration Sodium Chloride 10 ml 04/24/19 01:00 04/24/19 08:30 Normal Saline Flush 0.9% IVP 10 ml 0100,0900,1700 LAWRENCE Administration - Lab Result Fish Bone Diagrams: 04/24/19 04:40 04/24/19 04:40 - Additional Planning My Orders: My Active Orders 04/25/19 09:00 Furosemide [Lasix] 20 mg PO DAILY Metoprolol Succinate [Toprol Xl] 12.5 mg PO DAILY Subjective - Subjective Patient Reports: Feeling Better (Less SOB, able to put head more flat on pillow.), Headache (Getting a headache, she usuially take Excedrin daily and has not had it for > 1 day.) Objective Vital Signs: Vital Signs - 24 hr 04/23/19 04/23/19 04/23/19 17:02 17:21 18:22 Temperature 36.9 C Heart Rate 90 78 Heart Rate [ Brachial] Respiratory 28 H 24 Rate Blood Pressure 131/97 H 173/85 H 149/91 H Blood Pressure [Right Brachial artery] O2 Saturation 98 94 04/23/19 04/23/19 04/23/19 19:14 19:52 20:15 Temperature 36.6 C 36.6 C Heart Rate 87 94 Heart Rate [ 94 Brachial] Respiratory 20 18 16 Rate Blood Pressure 185/93 H 144/103 H Blood Pressure 154/88 H [Right Brachial artery] O2 Saturation 99 97 99 04/24/19 04/24/19 04/24/19 00:11 03:06 08:03 Temperature 36.8 C 37 C 36.9 C Heart Rate Heart Rate [ 57 L 91 95 Brachial] Respiratory 20 21 16 Rate Blood Pressure Blood Pressure 128/52 L 122/55 L 96/51 L [Right Brachial artery] O2 Saturation 92 92 98 04/24/19 04/24/19 08:15 10:26 Temperature 36.9 C Heart Rate 87 Heart Rate [ Brachial] Respiratory 18 Rate Blood Pressure Blood Pressure 92/57 L [Right Brachial artery] O2 Saturation 98 Oxygen O2 Source Nasal cannula Oxygen Flow Rate 2 I&O (Last 24 Hrs): Intake and Output Totals x24h 04/22/19 04/23/19 04/24/19 22:59 23:59 23:59 Intake Total 490 Output Total 275 Balance 215 General: Alert, Oriented x3 HEENT: Mucous membr. moist/pink Neck: Supple, No JVD Neuro: Alert, Non Focal Cardiovascular: Other (Regularly irreg. Distant heart sounds. 1-2/6 murmur at base without radiation. No gallop.) Respiratory: No respiratory distress, Rales (R base rales) Abdomen: Normal bowel sounds, Soft Extremities: Other (1+ edema to shins, good DP pulses.) - Results Results: Laboratory Results WBC 6.0 x10^3/uL (4.8-10.8) 04/24/19 04:40 RBC 4.13 10^6/uL (4.20-5.40) L 04/24/19 04:40 Hgb 13.2 g/dL (12.0-16.0) 04/24/19 04:40 Hct 39.8 % (37.0-47.0) 04/24/19 04:40 MCV 96.4 fL (81.0-99.0) 04/24/19 04:40 MCH 32.0 pg (27.0-31.0) H 04/24/19 04:40 MCHC 33.2 g/dL (32.0-36.0) 04/24/19 04:40 RDW 13.3 % (12.0-15.0) 04/24/19 04:40 Plt Count 211 10^3/uL (130-450) 04/24/19 04:40 MPV 10.5 fL (7.9-10.8) 04/24/19 04:40 Neut # (Auto) 3.5 10^3/uL (1.5-6.6) 04/24/19 04:40 Lymph # (Auto) 1.1 10^3/uL (1.5-3.5) L 04/24/19 04:40 [place] # (Auto) 0.9 10^3/uL (0.0-1.0) 04/24/19 04:40 Eos # (Auto) 0.4 10^3/uL (0.0-0.7) 04/24/19 04:40 Baso # (Auto) 0.0 10^3/uL (0.0-0.1) 04/24/19 04:40 Absolute Nucleated RBC 0.00 x10^3/uL 04/24/19 04:40 Nucleated RBC % 0.0 /100WBC 04/24/19 04:40 D-Dimer 311.5 ng/mL (200.0-255.0) H 04/23/19 17:15 Sodium 132 mmol/L (135-145) L 04/24/19 04:40 Potassium 3.7 mmol/L (3.5-5.0) 04/24/19 04:40 Chloride 94 mmol/L (101-111) L 04/24/19 04:40 Carbon Dioxide 28 mmol/L (21-32) 04/24/19 04:40 Anion Gap 10.0 (6-13) 04/24/19 04:40 BUN 13 mg/dL (6-20) 04/24/19 04:40 Creatinine 0.8 mg/dL (0.4-1.0) 04/24/19 04:40 Estimated GFR (MDRD) 68 (>89) L 04/24/19 04:40 Glucose 86 mg/dL (70-100) 04/24/19 04:40 Calcium 8.8 mg/dL (8.5-10.3) 04/24/19 04:40 Phosphorus 4.8 mg/dL (2.5-4.6) H 04/24/19 04:40 Magnesium 2.1 mg/dL (1.7-2.8) 04/24/19 04:40 Total Bilirubin 0.7 mg/dL (0.2-1.0) 04/23/19 17:15 AST 24 IU/L (10-42) 04/23/19 17:15 ALT 22 IU/L (10-60) 04/23/19 17:15 Alkaline Phosphatase 53 IU/L (42-121) 04/23/19 17:15 Troponin I High Sens 22.2 ng/L (2.3-14.8) H* 04/24/19 04:40 B-Natriuretic Peptide 665 pg/mL (5-100) H 04/24/19 04:40 Total Protein 7.2 g/dL (6.7-8.2) 04/23/19 17:15 Albumin 3.8 g/dL (3.2-5.5) 04/23/19 17:15 Globulin 3.4 g/dL (2.1-4.2) 04/23/19 17:15 Albumin/Globulin Ratio 1.1 (1.0-2.2) 04/23/19 17:15 Lipase 26 U/L (22-51) 04/23/19 17:15 - Procedures Procedures: Procedures REPOSITION R UP FEMUR WITH INTRAMED FIX, PERC APPROACH (03/27/16) TRANSFUSE NONAUT RED BLOOD CELLS IN PERIPH VEIN, PERC (03/27/16)
--- NOTE | 2019-04-24 12:38 | PHARMACY PROGRESS NOTE ---
- Best Possible Medication History Admit Date and Time: 04/23/191934 Processed by: Nursing Medication History completed: Yes As the person ultimately responsible for medication therapy, providers are able to order a medication from an existing home medication list in [facility] via the "Reconcile Routine" prior to Confirmation of that medication by clerical and office support workers. Such practice is discouraged except when the physician, in their clinical judgment, deems that a medical need exists for a medication without regard to previous use.
[2019-04-24] MEDS: ACETAMINOPHEN 325 MG TABLET PO SCH ×2 (13:24→20:15)
[2019-04-24] MEDS ORDERED: ACETAMINOPHEN 325 MG TABLET PO SCH (14:00)
[2019-04-24] MEDS: diphenhydrAMINE 25 MG CAPSULE PO SCH (20:15)
[2019-04-24] MEDS: LATANOPROST 0.005% OPHTH DROPS EACHEYE SCH (20:15)
[2019-04-25] MEDS: SODIUM CHLORIDE FLUSH 0.9% 10 ML SYRINGE IVP SCH ×3 (00:11→17:39)
[2019-04-25] MEDS ORDERED: ACETAMINOPHEN 500 MG TABLET PO STA (02:16)
[2019-04-25 06:06] LABS: BASOPHILS % (AUTO) 0.3 %; EOSINOPHILS # (AUTO) 0.3 10^3/uL (0.0-0.7); EOSINOPHILS % (AUTO) 4.8 %; MEAN CORPUSCULAR HGB CONC 32.6 g/dL (32.0-36.0); MEAN CORPUSCULAR VOLUME 98.1 fL (81.0-99.0); MEAN PLATELET VOLUME 10.8 fL (7.9-10.8); NEUTROPHILS # (AUTO) 3.7 10^3/uL (1.5-6.6); NEUTROPHILS % (AUTO) 60.6 %; PLT - PLATELET COUNT 169 10^3/uL (130-450); RED BLOOD COUNT 3.75 10^6/uL (4.20-5.40); RED CELL DISTRIBUTION WIDTH 13.1 % (12.0-15.0); WHITE BLOOD COUNT 6.1 x10^3/uL (4.8-10.8)
[2019-04-25 06:27] LABS: CALCIUM 8.4 mg/dL (8.5-10.3); CREATININE 0.7 mg/dL (0.4-1.0); MAGNESIUM 2.2 mg/dL (1.7-2.8); PHOSPHORUS 3.2 mg/dL (2.5-4.6)
[2019-04-25] MEDS: PANTOPRAZOLE 40 MG TABLET PO SCH (06:28)
[2019-04-25] MEDS: METOPROLOL SUCCINATE 25 MG TABLET PO SCH (08:30)
[2019-04-25] MEDS: HEPARIN 5,000 UNIT/ML VIAL SUBQ SCH ×2 (08:34→20:52)
[2019-04-25] MEDS: ACETAMINOPHEN 325 MG TABLET PO SCH ×3 (08:34→20:52)
[2019-04-25] MEDS ORDERED: FUROSEMIDE 20 MG TABLET PO SCH ×2 (09:00)
[2019-04-25] MEDS: FUROSEMIDE 20 MG/2 ML VIAL IVP SCH ×2 (09:20→14:10)
--- NOTE | 2019-04-25 17:54 | PROVIDER PROGRESS NOTE ---
Assessment/Plan - Problem List (1) Hypotension due to drugs Assessment/Plan: A low BP of 89 systolic iccurred again thia a.m. Follow VS closely as she is being diuresed. (2) Acute diastolic heart failure due to valvular disease Assessment/Plan: She reports having no orthopnea and less SOB when she walked in her room with PT. Continue plan with iv diuresis and B-blockers for diastolic relaxation. Follow I's and O's: thus far she is only <1L neg in fluid balance. Start PT today. Poss Dch tomorrow with an oxygen walk test for possible home O2 order. (3) Hyponatremia Assessment/Plan: Again low, likely relate to her fluid status. Fluid restriction and loop diuretics being used. Follow BMP daily (4) Aortic stenosis Assessment/Plan: Stable by Echo (5) Arthritis pain Assessment/Plan: Better pain control despite stopping NSAIDs. Continue scheduled pain meds and will be Dc with these (6) Glaucoma Assessment/Plan: On her home eye drops. (7) [place] (hard of hearing) Assessment/Plan: Her home hearing aide was brought in by son yesterday. - Current Meds Current Meds: Current Medications Generic Name Dose Route Start Last Admin Trade Name Freq PRN Reason Stop Dose Admin Acetaminophen 650 mg 04/24/19 14:00 04/25/19 14:10 Tylenol PO 650 mg 0800,1400,2100 LAWRENCE Administration Diphenhydramine HCl 25 mg 04/24/19 21:00 04/24/19 20:15 Benadryl PO 25 mg QPM LAWRENCE Administration Furosemide 20 mg 04/25/19 09:00 04/25/19 14:10 Lasix Inj 20mg Vial IVP 20 mg BIDDIURETIC LAWRENCE Administration Heparin Sodium (Porcine) 5,000 unit 04/23/19 21:00 04/25/19 08:34 SUBQ 5,000 unit BID LAWRENCE Administration Latanoprost 1 drops 04/23/19 21:00 04/24/19 20:15 Xalatan Ophth Drops EACHEYE 1 drops QPM LAWRENCE Administration Metoprolol Succinate 12.5 mg 04/25/19 09:00 04/25/19 08:30 Toprol Xl PO 12.5 mg DAILY LAWRENCE Administration Pantoprazole Sodium 40 mg 04/24/19 07:00 04/25/19 06:28 Protonix PO 40 mg QDAC LAWRENCE Administration Sodium Chloride 10 ml 04/24/19 01:00 04/25/19 17:39 Normal Saline Flush 0.9% IVP 10 ml 0100,0900,1700 LAWRENCE Administration - Lab Result Fish Bone Diagrams: 04/25/19 05:45 04/25/19 05:45 - Additional Planning My Orders: My Active Orders 04/24/19 21:00 diphenhydrAMINE [Benadryl] 25 mg PO QPM 04/25/19 Evaluate and Treat PT [PT] Routine 04/25/19 09:00 FUROSEMIDE INJ 20mg VIAL [LASIX INJ 20mg VIAL] 20 mg IVP BIDDIURETIC Metoprolol Succinate [Toprol Xl] 12.5 mg PO DAILY 04/26/19 09:00 polyethylene glycoL 3350 [Miralax] 17 gm PO DAILY Subjective - Subjective Patient Reports: Feeling Better (No further orthopnea, able to lie flat to sleep.) Objective Vital Signs: Vital Signs - 24 hr 04/24/19 04/24/19 04/25/19 18:49 21:00 00:20 Temperature 36.7 C 36.7 C Heart Rate [ 85 81 Brachial] Heart Rate [ 83 Monitoring electrodes] Respiratory 19 16 18 Rate Blood Pressure 152/90 H [Left Brachial artery] Blood Pressure 110/62 121/76 [Right Brachial artery] O2 Saturation 100 93 96 04/25/19 04/25/19 04/25/19 05:00 08:39 09:22 Temperature 36.7 C 37.0 C Heart Rate [ 52 L Brachial] Heart Rate [ 88 Monitoring electrodes] Respiratory 18 20 Rate Blood Pressure [Left Brachial artery] Blood Pressure 118/83 H 84/68 L 105/58 L [Right Brachial artery] O2 Saturation 99 94 04/25/19 04/25/19 13:00 15:49 Temperature 36.6 C 36.8 C Heart Rate [ Brachial] Heart Rate [ 60 53 L Monitoring electrodes] Respiratory 18 20 Rate Blood Pressure [Left Brachial artery] Blood Pressure 101/48 L 101/78 [Right Brachial artery] O2 Saturation 100 98 Oxygen O2 Source Nasal cannula Oxygen Flow Rate 2 I&O (Last 24 Hrs): Intake and Output Totals x24h 04/23/19 04/24/19 04/25/19 23:59 23:59 23:59 Intake Total 950 980 Output Total 925 1050 Balance 25 -70 General: Alert, Oriented x3 HEENT: EOMI, Mucous membr. moist/pink Neck: Supple, No JVD Neuro: Alert, Non Focal Cardiovascular: Other (Irreg, 1/6 systolic murmur at base.) Respiratory: No respiratory distress, Other (L base rales, clear in R base) Abdomen: Soft Extremities: Other (1+ edema) - Results Results: Laboratory Results WBC 6.1 x10^3/uL (4.8-10.8) 04/25/19 05:45 RBC 3.75 10^6/uL (4.20-5.40) L 04/25/19 05:45 Hgb 12.0 g/dL (12.0-16.0) 04/25/19 05:45 Hct 36.8 % (37.0-47.0) L 04/25/19 05:45 MCV 98.1 fL (81.0-99.0) 04/25/19 05:45 MCH 32.0 pg (27.0-31.0) H 04/25/19 05:45 MCHC 32.6 g/dL (32.0-36.0) 04/25/19 05:45 RDW 13.1 % (12.0-15.0) 04/25/19 05:45 Plt Count 169 10^3/uL (130-450) 04/25/19 05:45 MPV 10.8 fL (7.9-10.8) 04/25/19 05:45 Neut # (Auto) 3.7 10^3/uL (1.5-6.6) 04/25/19 05:45 Lymph # (Auto) 1.0 10^3/uL (1.5-3.5) L 04/25/19 05:45 [place] # (Auto) 1.0 10^3/uL (0.0-1.0) 04/25/19 05:45 Eos # (Auto) 0.3 10^3/uL (0.0-0.7) 04/25/19 05:45 Baso # (Auto) 0.0 10^3/uL (0.0-0.1) 04/25/19 05:45 Absolute Nucleated RBC 0.00 x10^3/uL 04/25/19 05:45 Nucleated RBC % 0.0 /100WBC 04/25/19 05:45 D-Dimer 311.5 ng/mL (200.0-255.0) H 04/23/19 17:15 Sodium 130 mmol/L (135-145) L 04/25/19 05:45 Potassium 3.8 mmol/L (3.5-5.0) 04/25/19 05:45 Chloride 90 mmol/L (101-111) L 04/25/19 05:45 Carbon Dioxide 30 mmol/L (21-32) 04/25/19 05:45 Anion Gap 10.0 (6-13) 04/25/19 05:45 BUN 15 mg/dL (6-20) 04/25/19 05:45 Creatinine 0.7 mg/dL (0.4-1.0) 04/25/19 05:45 Estimated GFR (MDRD) 79 (>89) L 04/25/19 05:45 Glucose 97 mg/dL (70-100) 04/25/19 05:45 Calcium 8.4 mg/dL (8.5-10.3) L 04/25/19 05:45 Phosphorus 3.2 mg/dL (2.5-4.6) 04/25/19 05:45 Magnesium 2.2 mg/dL (1.7-2.8) 04/25/19 05:45 Total Bilirubin 0.7 mg/dL (0.2-1.0) 04/23/19 17:15 AST 24 IU/L (10-42) 04/23/19 17:15 ALT 22 IU/L (10-60) 04/23/19 17:15 Alkaline Phosphatase 53 IU/L (42-121) 04/23/19 17:15 Troponin I High Sens 22.2 ng/L (2.3-14.8) H* 04/24/19 04:40 B-Natriuretic Peptide 327 pg/mL (5-100) H 04/25/19 05:45 Total Protein 7.2 g/dL (6.7-8.2) 04/23/19 17:15 Albumin 3.8 g/dL (3.2-5.5) 04/23/19 17:15 Globulin 3.4 g/dL (2.1-4.2) 04/23/19 17:15 Albumin/Globulin Ratio 1.1 (1.0-2.2) 04/23/19 17:15 Lipase 26 U/L (22-51) 04/23/19 17:15 - Procedures Procedures: Procedures REPOSITION R UP FEMUR WITH INTRAMED FIX, PERC APPROACH (03/27/16) TRANSFUSE NONAUT RED BLOOD CELLS IN PERIPH VEIN, PERC (03/27/16)
[2019-04-25] MEDS ORDERED: LEVALBUTEROL 1.25 MG/3 ML NEB INH PRN (18:30)
[2019-04-25] MEDS ORDERED: MORPHINE 2 MG/ML CARPUJECT IVP PRN (18:31)
[2019-04-25] MEDS: SODIUM CHLORIDE FLUSH 0.9% 10 ML SYRINGE IVP PRN ×2 (18:37→22:33)
[2019-04-25] MEDS ORDERED: IOVERSOL 320 100 ML VIAL IVP ONE (18:45)
[2019-04-25] MEDS: diphenhydrAMINE 25 MG CAPSULE PO SCH (20:52)
[2019-04-25] MEDS: LATANOPROST 0.005% OPHTH DROPS EACHEYE SCH (20:53)
[2019-04-25] MEDS ORDERED: FUROSEMIDE 20 MG/2 ML VIAL IVP STA (21:36)
--- NOTE | 2019-04-25 21:38 | XRAY Report ---
Reason: Worsening SOB Procedure Date: 04/25/2019 Accession Number: [id number] / [id number] Procedure: XR - Chest 1 View X-Ray CPT Code: 45855 Final Report FULL RESULT: EXAM: CHEST RADIOGRAPHY EXAM DATE: 04/25/2019 06:59 PM. CLINICAL HISTORY: Worsening SOB. COMPARISON: CHEST 2 VIEW 04/23/2019 5:03 PM. TECHNIQUE: 1 view. FINDINGS: Lungs/Pleura: Elevated right hemidiaphragm. No infiltrates. No pleural effusions or pneumothorax. Mediastinum: Heart size within normal limits. Tortuous thoracic aorta. Atherosclerotic calcifications of the aortic knob. Minimal pulmonary vascular congestion. Osseous structures: No significant focal osseous lesions. IMPRESSION: 1. Minimal pulmonary vascular congestion. 2. Otherwise, no acute cardiopulmonary findings radiographically. 3. Elevated right hemidiaphragm. RADIA
[2019-04-26] MEDS: SODIUM CHLORIDE FLUSH 0.9% 10 ML SYRINGE IVP SCH ×3 (00:11→17:43)
[2019-04-26 05:24] LABS: BASOPHILS % (AUTO) 0.5 %; EOSINOPHILS # (AUTO) 0.4 10^3/uL (0.0-0.7); EOSINOPHILS % (AUTO) 6.6 %; LYMPHOCYTES # (AUTO) 1.3 10^3/uL (1.5-3.5); LYMPHOCYTES % (AUTO) 22.4 %; MEAN CORPUSCULAR HEMOGLOBIN 31.7 pg (27.0-31.0); MEAN CORPUSCULAR HGB CONC 32.2 g/dL (32.0-36.0); MEAN CORPUSCULAR VOLUME 98.7 fL (81.0-99.0); MEAN PLATELET VOLUME 11.2 fL (7.9-10.8); MONOCYTES % (AUTO) 17.7 %; NEUTROPHILS # (AUTO) 3.1 10^3/uL (1.5-6.6); NEUTROPHILS % (AUTO) 52.3 %; PLT - PLATELET COUNT 172 10^3/uL (130-450); RED BLOOD COUNT 3.78 10^6/uL (4.20-5.40); RED CELL DISTRIBUTION WIDTH 13.2 % (12.0-15.0); WHITE BLOOD COUNT 5.9 x10^3/uL (4.8-10.8)
[2019-04-26 05:35] LABS: CALCIUM 8.7 mg/dL (8.5-10.3); CREATININE 0.8 mg/dL (0.4-1.0); PHOSPHORUS 2.6 mg/dL (2.5-4.6)
[2019-04-26] MEDS: FUROSEMIDE 20 MG/2 ML VIAL IVP SCH (06:03)
[2019-04-26] MEDS: PANTOPRAZOLE 40 MG TABLET PO SCH (06:03)
[2019-04-26] MEDS: ACETAMINOPHEN 325 MG TABLET PO SCH ×3 (07:42→21:49)
[2019-04-26] MEDS: polyethylene glycoL 3350 17 GM PACKET PO SCH (08:58)
[2019-04-26] MEDS: METOPROLOL SUCCINATE 25 MG TABLET PO SCH ×3 (08:58→12:57)
[2019-04-26] MEDS: DOCUSATE SODIUM 250 MG CAPSULE PO SCH (08:58)
[2019-04-26] MEDS: SENNA 8.6 MG TABLET PO SCH (08:58)
[2019-04-26] MEDS: HEPARIN 5,000 UNIT/ML VIAL SUBQ SCH ×2 (08:59→21:50)
[2019-04-26] MEDS ORDERED: PROCHLORPERAZINE 10 MG/2 ML VIAL IVP PRN (10:29)
--- NOTE | 2019-04-26 10:44 | PROVIDER PROGRESS NOTE ---
Assessment/Plan - Problem List (1) Nausea Assessment/Plan: She has new c/o nausea this morningand needed a Zofran dose, which only helped slightly. She got Morphine last evening when she had worse SOB (see below). The son reports that he himself gets a late reaction of nausea after Morphine, therefore maybe her nausea is from last night's Morphine, he said. The patient is also constipated, no BM since being here. He also confirms what the patient reports, that she has had a poor appetite for the last few days before this admission, and the son thinks it could be from her Ibuprofen use. Will obtain Abd XRay, eval for intestinal obstruction as cause of nausea and constipation. Poss CT abdomen as well. Start bowel rest: change diet to clear liquids (and she requests oatmeal which I will OK). Check LFTs. Stop Morphine. She has already been off her Ibuprofen since admission. Use Zofran and will add prn Compazine to alternate. Gen Surg consult for a possible EGD, suspecting gastritis or ulcer from NSAIDs. There have been no BMs to guaic test Continue Pepcid. No Dch home today. (2) Acute diastolic heart failure due to valvular disease Assessment/Plan: LAst evening at about 6 pm she complained of SOB , the [employer] saw her. She had stable VS and O2 sat was 100% on 2L oxygen per n.c. She received a neb treatment and a dose of iv Morphine. A CXR was done that showed improved CHF. She had just had a CTA chest 2 days previously that was neg for PE. She is only about 1L neg in fluid balance since admission. Perhaps she was sipping fluids due to the nausea which had apparently started before this admission, according the pt and son at bedside confirms that. Lasix iv bid continues. Metoprolol continues. Follow I's and O's and BMP, Mg daily. Will plan an oxygen walk test for possible home O2 order, on day of DCh. No Dch today due to new nausea. (3) Hyponatremia Assessment/Plan: Low Na continues but is stable, not dropping. Monitor BMP daily. Continue with fluid restriction and diuresis. (4) Aortic stenosis Assessment/Plan: Stable (5) Arthritis pain Assessment/Plan: She denies ankle and foot pain since being admitted but thinks it's from not having to walk, not from using Tylenol. Remain off NSAIDs due to nausea and poss gastritis and due to current CHF exacerbation. (6) Glaucoma Assessment/Plan: Continue eye drops (7) [place] (hard of hearing) Assessment/Plan: Has hearing aide here. (8) Hypotension due to drugs Assessment/Plan: Resolved - Current Meds Current Meds: Current Medications Generic Name Dose Route Start Last Admin Trade Name Freq PRN Reason Stop Dose Admin Acetaminophen 650 mg 04/24/19 14:00 04/26/19 07:42 Tylenol PO 650 mg 0800,1400,2100 LAWRENCE Administration Diphenhydramine HCl 25 mg 04/24/19 21:00 04/25/19 20:52 Benadryl PO 25 mg QPM LAWRENCE Administration Docusate Sodium 250 - 500 mg 04/26/19 09:00 04/26/19 08:58 Colace 250mg Capsule PO 250 mg DAILY LAWRENCE Administration Furosemide 20 mg 04/25/19 09:00 04/26/19 06:03 Lasix Inj 20mg Vial IVP 04/26/19 16:00 20 mg BIDDIURETIC LAWRENCE Administration Heparin Sodium (Porcine) 5,000 unit 04/23/19 21:00 04/26/19 08:59 SUBQ 5,000 unit BID LAWRENCE Administration Latanoprost 1 drops 04/23/19 21:00 04/25/19 20:53 Xalatan Ophth Drops EACHEYE 1 drops QPM LAWRENCE Administration Levalbuterol HCl 1.25 mg 04/25/19 18:30 04/25/19 20:25 Xopenex INH 1.25 mg Q4H PRN Administration Shortness of Air/Wheezing Metoprolol Succinate 12.5 mg 04/25/19 09:00 04/26/19 09:07 Toprol Xl PO Not Given DAILY LAWRENCE Ondansetron HCl 4 mg 04/23/19 19:35 04/26/19 09:44 Zofran Inj IVP 4 mg Q6HR PRN Administration Nausea / Vomiting Pantoprazole Sodium 40 mg 04/24/19 07:00 04/26/19 06:03 Protonix PO 40 mg QDAC LAWRENCE Administration Polyethylene Glycol 17 gm 04/26/19 09:00 04/26/19 08:58 Miralax PO 17 gm DAILY LAWRENCE Administration Senna 8.6 - 17.2 mg 04/26/19 09:00 04/26/19 08:58 Senokot PO 8.6 mg DAILY LAWRENCE Administration Sodium Chloride 10 ml 04/23/19 19:35 04/25/19 22:33 Normal Saline Flush 0.9% IVP 10 ml PRN PRN Administration NEEDED PER PROVIDER ORDERS Sodium Chloride 10 ml 04/24/19 01:00 04/26/19 06:04 Normal Saline Flush 0.9% IVP 10 ml 0100,0900,1700 LAWRENCE Administration - Lab Result Fish Bone Diagrams: 04/26/19 04:35 04/26/19 04:35 - Additional Planning My Orders: My Active Orders 04/25/19 18:30 Nebulizer/MDI Tx. [RC] QID Resp Teach Nebulizer/MDI [RC] .ONCE Levalbuterol [Xopenex] 1.25 mg INH Q4H PRN 04/26/19 05:00 LIVER PANEL [CHEM] Routine 04/26/19 09:00 Docusate Sodium 250Mg Capsule [Colace 250Mg Capsule] 250 - 500 mg PO DAILY Senna [Senokot] 8.6 - 17.2 mg PO DAILY polyethylene glycoL 3350 [Miralax] 17 gm PO DAILY 04/26/19 10:29 Prochlorperazine Inj [Compazine Inj] 10 mg IVP Q6HR PRN 04/26/19 10:31 Abdomen 1 View X-Ray [XR] Stat 04/26/19 Lunch DIET [Clear Liquid Diet] [DIET] Subjective - Subjective Patient Reports: Constipation, Nausea Objective Vital Signs: Vital Signs - 24 hr 04/25/19 04/25/19 04/25/19 13:00 15:49 18:30 Temperature 36.6 C 36.8 C Heart Rate Heart Rate [ 60 53 L 75 Monitoring electrodes] Respiratory 18 20 24 Rate Blood Pressure 101/48 L 101/78 112/48 L [Right Brachial artery] O2 Saturation 100 98 100 04/25/19 04/25/19 04/26/19 19:52 20:27 00:32 Temperature 37.0 C 36.9 C Heart Rate 68 Heart Rate [ 70 85 Monitoring electrodes] Respiratory 22 20 18 Rate Blood Pressure 139/71 H 123/50 L [Right Brachial artery] O2 Saturation 100 97 04/26/19 04/26/19 04/26/19 05:00 08:16 09:11 Temperature 36.9 C 37 C Heart Rate Heart Rate [ 84 80 56 L Monitoring electrodes] Respiratory 18 22 Rate Blood Pressure 145/63 H 133/66 H [Right Brachial artery] O2 Saturation 100 94 Oxygen O2 Source Nasal cannula Oxygen Flow Rate 2 I&O (Last 24 Hrs): Intake and Output Totals x24h 04/24/19 04/25/19 04/26/19 23:59 23:59 23:59 Intake Total 950 1130 180 Output Total 925 1100 1900 Balance 25 30 -1720 General: Alert, Moderate distress (from nausea), Other HEENT: [place], Mucous membr. moist/pink Neck: Supple, No JVD Neuro: Alert, Non Focal Cardiovascular: Other ([place]) Respiratory: No respiratory distress Abdomen: Soft, No tenderness Extremities: Other (1+ ankle edema) - Results Results: Laboratory Results WBC 5.9 x10^3/uL (4.8-10.8) 04/26/19 04:35 RBC 3.78 10^6/uL (4.20-5.40) L 04/26/19 04:35 Hgb 12.0 g/dL (12.0-16.0) 04/26/19 04:35 Hct 37.3 % (37.0-47.0) 04/26/19 04:35 MCV 98.7 fL (81.0-99.0) 04/26/19 04:35 MCH 31.7 pg (27.0-31.0) H 04/26/19 04:35 MCHC 32.2 g/dL (32.0-36.0) 04/26/19 04:35 RDW 13.2 % (12.0-15.0) 04/26/19 04:35 Plt Count 172 10^3/uL (130-450) 04/26/19 04:35 MPV 11.2 fL (7.9-10.8) H 04/26/19 04:35 Neut # (Auto) 3.1 10^3/uL (1.5-6.6) 04/26/19 04:35 Lymph # (Auto) 1.3 10^3/uL (1.5-3.5) L 04/26/19 04:35 [place] # (Auto) 1.0 10^3/uL (0.0-1.0) 04/26/19 04:35 Eos # (Auto) 0.4 10^3/uL (0.0-0.7) 04/26/19 04:35 Baso # (Auto) 0.0 10^3/uL (0.0-0.1) 04/26/19 04:35 Absolute Nucleated RBC 0.00 x10^3/uL 04/26/19 04:35 Nucleated RBC % 0.0 /100WBC 04/26/19 04:35 D-Dimer 311.5 ng/mL (200.0-255.0) H 04/23/19 17:15 Sodium 130 mmol/L (135-145) L 04/26/19 04:35 Potassium 4.0 mmol/L (3.5-5.0) 04/26/19 04:35 Chloride 90 mmol/L (101-111) L 04/26/19 04:35 Carbon Dioxide 33 mmol/L (21-32) H 04/26/19 04:35 Anion Gap 7.0 (6-13) 04/26/19 04:35 BUN 16 mg/dL (6-20) 04/26/19 04:35 Creatinine 0.8 mg/dL (0.4-1.0) 04/26/19 04:35 Estimated GFR (MDRD) 68 (>89) L 04/26/19 04:35 Glucose 101 mg/dL (70-100) H 04/26/19 04:35 Calcium 8.7 mg/dL (8.5-10.3) 04/26/19 04:35 Phosphorus 2.6 mg/dL (2.5-4.6) 04/26/19 04:35 Magnesium 2.0 mg/dL (1.7-2.8) 04/26/19 04:35 Total Bilirubin 0.7 mg/dL (0.2-1.0) 04/23/19 17:15 AST 24 IU/L (10-42) 04/23/19 17:15 ALT 22 IU/L (10-60) 04/23/19 17:15 Alkaline Phosphatase 53 IU/L (42-121) 04/23/19 17:15 Troponin I High Sens 22.2 ng/L (2.3-14.8) H* 04/24/19 04:40 B-Natriuretic Peptide 355 pg/mL (5-100) H 04/26/19 04:35 Total Protein 7.2 g/dL (6.7-8.2) 04/23/19 17:15 Albumin 3.8 g/dL (3.2-5.5) 04/23/19 17:15 Globulin 3.4 g/dL (2.1-4.2) 04/23/19 17:15 Albumin/Globulin Ratio 1.1 (1.0-2.2) 04/23/19 17:15 Lipase 26 U/L (22-51) 04/23/19 17:15 - Procedures Procedures: Procedures REPOSITION R UP FEMUR WITH INTRAMED FIX, PERC APPROACH (03/27/16) TRANSFUSE NONAUT RED BLOOD CELLS IN PERIPH VEIN, PERC (03/27/16)
[2019-04-26 10:59] LABS: ALBUMIN 3.3 g/dL (3.2-5.5); BILIRUBIN,DIRECT 0.1 mg/dL (0.1-0.5); BILIRUBIN,TOTAL 0.5 mg/dL (0.2-1.0); TOTAL PROTEIN 6.6 g/dL (6.7-8.2)
--- NOTE | 2019-04-26 11:20 | XRAY Report ---
Reason: nausea, constipation Procedure Date: 04/26/2019 Accession Number: [id number] / [id number] Procedure: XR - Abdomen 1 View X-Ray CPT Code: 13022 Final Report FULL RESULT: EXAM: ABDOMEN RADIOGRAPHY EXAM DATE: 04/26/2019 11:00 AM. CLINICAL HISTORY: Nausea, constipation. COMPARISON: None. TECHNIQUE: 1 view. FINDINGS: Bowel Gas Pattern: Within normal limits. No dilated loops. Other: Degenerative changes in lumbar spine with dextroscoliosis. IMPRESSION: Nonobstructive bowel gas pattern. RADIA
--- NOTE | 2019-04-26 15:13 | CONSULTATION NOTE ---
Referring Provider Consult Date: 04/26/19 Chief Complaint - Chief Complaint Chief Complaint: nausea History of Present Illness - History Obtained From History obtained from: chart Exam Limitations: patient asleep, no family in room - History of Present Illness HPI Comment/Other: 88yo F admitted for new onset CHF. She takes high doses of ibuprofen as well as antacids. She has complained of nausea but has not had a BM since arrival. No stool available then for guaic test but Hg remains stable and she is not significantly anemic. Hospitalist team asks whether she warrants an EGD to evaluate presumptively for gastritis. 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 Denies any other family history to her knowledge. Living arrangement: At home Living Situation: Alone Social History Notes: She lives alone at home. Has lived on [facility] for over 15 years after previously living in [place], [place]. She smoked for a little bit in her early years but quit. Denies alcohol use. - Substance History Use: Uses substance without health or social issues: NONE Meds/Allgy - Home Medications Home Medications: Ambulatory Orders Medication Instructions Recorded Confirmed Latanoprost 0.005% Ophth Drops 1 drops EACHEYE QPM 03/28/16 04/23/19 [Xalatan Ophth Drops] Walker [Ultra-Light Rollator] 1 each MC DAILY #1 each 04/04/16 04/23/19 - Allergies Allergies/Adverse Reactions: Allergies Allergy/AdvReac Type Severity Reaction Status Date / Time No Known Drug Allergies Allergy Verified 04/23/19 19:17 Review of Systems - Other Findings Other Findings: patient asleep soundly and no family present Exam - Vital Signs Reviewed Vital Signs: Yes Vital Signs: Vital Signs x48h Temp Pulse Pulse Pulse Resp BP Pulse Ox 04/26/19 13:49 36.8 C 80 17 107/48 L 04/26/19 12:59 80 134/57 H 04/26/19 10:56 78 118/78 04/26/19 09:54 86 18 04/26/19 09:11 56 L 04/26/19 08:16 37 C 80 22 133/66 H 94 - Physical Exam Comments/Other: deferred as pt asleep Conclusion and Plan - Lab Results Laboratory Results 04/26/19 04:35: Total Bilirubin 0.5, Direct Bilirubin 0.1, AST 18, ALT 16, Alkaline Phosphatase 43, Total Protein 6.6 L, Albumin 3.3, Globulin 3.3 04/26/19 04:35: B-Natriuretic Peptide 355 H 04/26/19 04:35: Sodium 130 L, Potassium 4.0, Chloride 90 L, Carbon Dioxide 33 H, Anion Gap 7.0, BUN 16, Creatinine 0.8, Estimated GFR (MDRD) 68 L, Glucose 101 H, Calcium 8.7, Phosphorus 2.6, Magnesium 2.0 04/26/19 04:35: WBC 5.9, RBC 3.78 L, Hgb 12.0, Hct 37.3, MCV 98.7, MCH 31.7 H, MCHC 32.2, RDW 13.2, Plt Count 172, MPV 11.2 H, Neut # (Auto) 3.1, Lymph # (Auto) 1.3 L, Addison # (Auto) 1.0, Eos # (Auto) 0.4, Baso # (Auto) 0.0, Absolute Nucleated RBC 0.00, Nucleated RBC % 0.0 04/25/19 05:45: B-Natriuretic Peptide 327 H 04/25/19 05:45: Sodium 130 L, Potassium 3.8, Chloride 90 L, Carbon Dioxide 30, Anion Gap 10.0, BUN 15, Creatinine 0.7, Estimated GFR (MDRD) 79 L, Glucose 97, Calcium 8.4 L, Phosphorus 3.2, Magnesium 2.2 04/25/19 05:45: WBC 6.1, RBC 3.75 L, Hgb 12.0, Hct 36.8 L, MCV 98.1, MCH 32.0 H, MCHC 32.6, RDW 13.1, Plt Count 169, MPV 10.8, Neut # (Auto) 3.7, Lymph # (Auto) 1.0 L, Addison # (Auto) 1.0, Eos # (Auto) 0.3, Baso # (Auto) 0.0, Absolute Nucleated RBC 0.00, Nucleated RBC % 0.0 - Diagnosis Diagnosis: CHF. nausea - Plan Plan: given no signs or symptoms indicative of significant gastritis, would defer invasive procedure requiring sedation in this geriatric patient with new onset CHF --> should she have changing symptoms after discharge concerning for anemia or abdominal pain resistant to ant-acids, she may follow up for EGD to evaluate but as it will not acid changer currently would not pursue
[2019-04-26] MEDS ORDERED: ACETAMINOPHEN 325 MG TABLET PO ONE (17:55)
[2019-04-26] MEDS: LATANOPROST 0.005% OPHTH DROPS EACHEYE SCH (21:49)
[2019-04-26] MEDS: diphenhydrAMINE 25 MG CAPSULE PO SCH (21:49)
[2019-04-27] MEDS: SODIUM CHLORIDE FLUSH 0.9% 10 ML SYRINGE IVP SCH (00:04)
[2019-04-27] MEDS ORDERED: methocarbamoL 500 MG TABLET PO PRN (01:08)
[2019-04-27] MEDS: PANTOPRAZOLE 40 MG TABLET PO SCH (06:23)
[2019-04-27 08:10] VITALS: BP 145/60
[2019-04-27] MEDS: ACETAMINOPHEN 325 MG TABLET PO SCH (08:59)
[2019-04-27] MEDS: DOCUSATE SODIUM 250 MG CAPSULE PO SCH (09:00)
[2019-04-27] MEDS: METOPROLOL SUCCINATE 25 MG TABLET PO SCH (09:00)
[2019-04-27] MEDS: polyethylene glycoL 3350 17 GM PACKET PO SCH (09:00)
[2019-04-27] MEDS: SENNA 8.6 MG TABLET PO SCH (09:00)
[2019-04-27] MEDS: HEPARIN 5,000 UNIT/ML VIAL SUBQ SCH (09:02)
--- NOTE | 2019-04-27 10:29 | Discharge Plan ---
Discharge Plan Problem Reviewed?: Yes Disposition: Home, Self Care Condition: Stable Prescriptions: Furosemide [Lasix] 20 mg PO MOWEFR #15 tablet Metoprolol Succinate [Toprol Xl] 12.5 mg PO DAILY #15 tablet Pantoprazole [Protonix] 40 mg PO QDAC #30 tablet Diet: Low Sodium Activity Restrictions: Activity as Tolerated Shower Restrictions: No Assistance Devices: Walker Weight Bearing: Full Weight Instruction Topics: Heart Failure Warning Signs, Heart Failure Tracking Weight, Heart Failure Diet Changes, ED PUD Vs Gastritis Health Concerns: You were admitted with fluid overload and diagnosed with congestive heart failure from a "stiff" heart, not a weak heart. You needed diuretics to excrete the extra fluid. Your additional symptom of nausea and abdominal could be from using excessive ibuprofen. Stop taking daily (or more frequent) Eqaline Ibuprofen. You may continue to use the Equaline Sleep Aid, which contains Benadryl. You may continue to take the Eqaline Migraine Formula, which contains Tylenol, aspirin and caffeine. You may want to stop the Pepcid Complete, if it was not helping the abdominal pain, since you now have a prescription for Protonix. You are being discharged with some new medications. They were electronically prescribed directly to your pharmacy. Please follow the new list of medications. Please see your PCP in follow-up in the next 5 to 10 days for further evaluation of nausea and abdominal pain, and for any medication dose adjustments. With your diagnosis of CHF, you qualify to attend Congestive Heart Failure education classes here at the "[facility]"; you would need a referral from your PCP, and it is covered by Medicare. Plan of Treatment: As above. Care Goals: Improvement in symptoms and stabilization are the goals. Assessment: The patient understands and is agreeable with the plan. Additional Instructions or Follow Up instructions: If you have new or worsening symptoms, call your PCP or come to the ER. Follow-Up Care: [facility] - CHF Classes No Smoking: If you smoke, Please STOP! Call for help. Follow-up with: GUERDA ESCAMILLA MD [Primary Care Provider] -
--- NOTE | 2019-04-27 10:48 | DISCHARGE SUMMARY ---
Discharge Summary Admit Date: 04/23/19 Discharge Date: 04/27/19 Discharging Provider: Dr Jennifer Solano Primary Care Provider: Dr Enma Purdy Code Status: Do Not Attempt Resuscitation Condition at Discharge: Stable Discharge Disposition: 01 Home, Self Care - DIAGNOSES Admission Diagnoses: (1) Suspected congestive heart failure (2) Hypoxia (3) Hyponatremia (4) Gastritis (5) Hypertension (6) Mild aortic stenosis (7) History of pulmonary embolism Discharge Diagnoses with Status of Each Condition: See below - HPI History of Present Illness: From the admission H&P of Dr Ebenezer Kaba: This is a 88-year-old female with a past medical history significant for a provoked pulmonary embolism after right hip fracture who is no longer on anticoagulation, chronic hearing loss who presents today complaining of worsening shortness of breath over the past 2 days. She states her symptoms began yesterday at rest and with exertion. Today she noticed she was really short of breath at rest. She has an associated cough with occasional sputum production. She reports no fevers but does complain of occasional chills. She states she has chronic swelling in her bilateral ankles and she does not feel it is much worse. She denies orthopnea and states she sleeps on her left side usually and this has not recently changed. She has also had nausea and vomiting over the past few days. No bloody emesis. She does take daily NSAID for the past few years for chronic right ankle pain. She reports epigastric abdominal pain. She has no chest pain, dysuria, urgency, frequency. She reports no prior history of heart failure or coronary artery disease. She also denies a prior history of hypertension and is not on any antihypertensives at home. Her only prescription medication is latanoprost eye drops to help prevent glaucoma. In the emergency department, she is found to be afebrile with temperature of 3 6.9 C. Her heart rate was 90 and in sinus rhythm. Her blood pressure was initially 131/97 but this increased to 185/93. She was given lisinopril 10 mg and Nitropaste. Her blood pressure improved to 144/103 after these interventions. She was not tachypneic and initially she was saturating well on room air. She did walk in the emergency department on room air and after returning to her bed, she is found be hypoxic with oxygen saturations in the low 80s. Her labs were significant for an elevated d-dimer of 311.5. Her sodium was low at 127. Her troponin was mildly elevated at 19.6 and her BNP was elevated at 559. Her chest x-ray showed CHF. Given the elevated d-dimer, a CT angiogram of the chest was obtained which was negative for pulmonary embolism but did show pulmonary edema. She was given Lasix 40 mg IV in the emergency department. Given her dyspnea and hypoxia, the Hospitalist Team was consulted for admission. - HOSPITAL COURSE Hospital Course: (1) Acute diastolic heart failure due to valvular disease She was started on iv Lasix and the dose had to be increased before she finally had a negative fluid balance while here. The troponins were not (+) for an [place]. She underwent an Echo which showed normal LVEF of 60%, therefore likely diastolic dysfunction. She was also put on a B-mirna for heart rate control and mildly elevated blood pressure. One evening at about 6 pm she complained of SOB , the Office Clerk Routine saw her. She had stable vital signs and O2 sat was 100% on 2L oxygen per n.c. She received a neb treatment and a dose of iv Morphine. A CXR was done that showed improved CHF. She had just had a CTA chest 2 days previously that was neg for PE. The following morning she had marked nausea, which she and the son felt were her late reaction to an iv narcotic and this postponed her discharge by a day. An oxygen walk test for possible home O2 was done on day of discharge and was not needed. She was prescribed new Lasix and Toprol at discharge. (2) Hyponatremia She was felt to have hypervolemic hyponatremia and was managed with fluid restriction and diuresis. The sodium was 127>> 132>> 130 at discharge. (3) Aortic stenosis The Echo done here showed minimal worsening of her previously known aortic stenosis. (5) Gastritis She had new c/o nausea the morning after getting iv Morphine and needed iv Zofran and Compazine. The son, at bedside, reported that he himself gets a late reaction of nausea after Morphine, therefore maybe her nausea was from the previous night's Morphine. In addition, she had presented with epigastric pain, presumed to be from NSAIDs. She was seen in consult by Dr Garner of General Surgery who advised using Pepcid or Protonix and no EGD needed at this time. The patient was also constipated, having no BM since being here. An Abd XRay showed no intestinal obstruction as cause of nausea and constipation. She was reverted to a clear liquid diet plus oatmeal, and felt better the next day. (6) Arthritis pain She denied ankle and foot pain since being admitted but thought it was from not having to walk, not due to taking Tylenol. She was advised to remain off NSAIDs due to nausea and possible gastritis and due to current CHF exacerbation, and use Tylenol. (7) Glaucoma Continued eye drops while here (8) EGEGIK (hard of hearing) She had her hearing aide while here. (9) Hypotension due to drugs On several occasions, there were significant low BP readings after certain above drugs were given, and meds and doses needed adjustment and staggered dosing. - ALLERGIES Allergies/Adverse Reactions: Allergies Allergy/AdvReac Type Severity Reaction Status Date / Time No Known Drug Allergies Allergy Verified 04/23/19 19:17 - MEDICATIONS Home Medications: Ambulatory Orders Medication Instructions Recorded Confirmed Latanoprost 0.005% Ophth Drops 1 drops EACHEYE QPM 03/28/16 04/23/19 [Xalatan Ophth Drops] Walker [Ultra-Light Rollator] 1 each MC DAILY #1 each 04/04/16 04/23/19 Furosemide [Lasix] 20 mg PO MOWEFR #15 tablet 04/27/19 Metoprolol Succinate [Toprol Xl] 12.5 mg PO DAILY #15 tablet 04/27/19 Pantoprazole [Protonix] 40 mg PO QDAC #30 tablet 04/27/19 - PHYSICAL EXAM AT DISCHARGE General Appearance: positive: No acute distress, Alert Eyes Bilateral: positive: Normal inspection, EOMI ENT: positive: ENT inspection nml, No signs of dehydration Neck: positive: Nml inspection, No JVD Respiratory: positive: No respiratory distress, Breath sounds nml Cardiovascular: positive: Regular rate & rhythm, Systolic murmur Abdomen: positive: Non-tender, Nml bowel sounds, No distention Skin: positive: Color nml Extremities: positive: Other (1+ ankle edema, no ankle joint warmth or redness.) - LABS Result Diagrams: 04/26/19 04:35 04/26/19 04:35 - DIAGNOSTIC IMAGING Diagnostic Imaging Results: Final report reviewed - FOLLOW UP Follow Up: See PCP in 1 week in hospital follow-up. - TIME SPENT Time Spent in Discharge (Minutes): 60
== END 2019-04-27 13:49 | disposition home or self-care (01) | DRG 291 ==
LOC: EDUNIT# → ED 16:50 → MS2 19:35
PROVIDERS: ADMIT Internal Medicine; ATTEND Internal Medicine
DX: I50.9 Heart failure, unspecified (principal); I35.0 Nonrheumatic aortic (valve) stenosis; I11.0 Hypertensive heart disease with heart failure; I50.31 Acute diastolic (congestive) heart failure; E87.1 Hypo-osmolality and hyponatremia; I08.0 Rheumatic disorders of both mitral and aortic valves; K29.70 Gastritis, unspecified, without bleeding; T40.2X5A Adverse effect of other opioids, initial encounter; Y92.230 Patient room in hospital as the place of occurrence of the external cause; I95.2 Hypotension due to drugs; T50.905A Adverse effect of unspecified drugs, medicaments and biological substances, initial encounter; K59.00 Constipation, unspecified; G89.29 Other chronic pain; M19.071 Primary osteoarthritis, right ankle and foot; R51 Headache; R10.13 Epigastric pain; T39.395A Adverse effect of other nonsteroidal anti-inflammatory drugs [NSAID], initial encounter; Y92.009 Unspecified place in unspecified non-institutional (private) residence as the place of occurrence of the external cause; H40.9 Unspecified glaucoma; H91.90 Unspecified hearing loss, unspecified ear; Z79.1 Long term (current) use of non-steroidal anti-inflammatories (NSAID); Z87.891 Personal history of nicotine dependence; Z86.711 Personal history of pulmonary embolism
CPT/HCPCS: 36415; 71045; 71046; 71275; 74018; 80048; 80053; 80076; 83690; 83735; 83880; 84100; 84484; 85025; 85379; 93005; 93306; 94640; 96374; 97116; 97161; 99285; A9270; Q9967